=== PATIENT | female | born 1980 | race Caucasian/White ===

== ENCOUNTER 2024-03-11 09:57 | Outpatient (CLI) | payer BC | END 2024-03-11 09:58 | disposition home or self-care (01) | LOC: CSHCT 09:57 | PROVIDERS: ATTEND Orthopaedic Surgery | DX: Z01.818 Encounter for other preprocedural examination (principal); M17.12 Unilateral primary osteoarthritis, left knee ==

== ENCOUNTER 2024-12-09 15:29 | Outpatient (CLI) | payer BC | END 2024-12-09 15:30 | disposition home or self-care (01) | LOC: CSHMAMMO 15:29 | PROVIDERS: ATTEND Family Medicine Sports Medicine | DX: Z12.31 Encounter for screening mammogram for malignant neoplasm of breast (principal) | CPT/HCPCS: 77063; 77067 ==